=== PATIENT | female | born 1935 | race Caucasian/White ===

== ENCOUNTER 2024-06-24 13:54 | Emergency (ER) | payer OTHER, SELFPAY ==
[2024-06-24 14:04] VITALS: BP 102/67
[2024-06-24 14:18] LABS: % Basophils 0.5 % (0-2); % Eosinophils 1.3 % (0-6); % Immature Granulocytes 0.4 % (0-0.5); % Lymphocytes 20.1 % (20.5-51.1); % Monocytes 7.4 % (1.7-9.3); % Neutrophils 70.3 % (42.2-75.2); Absolute Basophils 0.1 10^3/uL (0-0.2); Absolute Eosinophils 0.1 10^3/uL (0-0.7); Absolute Lymphocytes 2.2 10^3/uL (1.2-3.4); Absolute Monocytes 0.8 10^3/uL (0.1-0.6); Absolute Neutrophils 7.8 10^3/uL (1.4-6.5); Hematocrit 36.2 % (37.0-47.0); Hemoglobin 12.4 g/dL (12.0-16.0); Mean Corp Hgb Conc. 34.3 g/dL (33.0-37.0); Mean Corpuscular Hgb 28.7 pg (27.0-31.0); Mean Corpuscular Volume 83.8 fL (81.0-99.0); Mean Platelet Volume 9.4 fL (7.4-10.4); Nucleated Red Blood Cells % 0 %; Platelet Count 307 10^3/uL (130-400); Red Blood Cell Count 4.32 10^6/uL (4.20-5.40); Red Cell Dist. Width 13.5 % (11.5-14.5)
[2024-06-24 14:47] LABS: ALT (SGPT) 14 U/L (0-35); AST (SGOT) 20 U/L (14-36); Albumin 4.2 g/dl (3.5-5.0); Alkaline Phosphatase 70 U/L (38-126); Blood Urea Nitrogen 15 mg/dl (7-17); Calcium 9.4 mg/dl (8.4-10.2); Carbon Dioxide 24 mmol/L (22-30); Chloride 99 mmol/L (98-107); Glucose 156 mg/dl (70-99); Potassium 3.6 mmol/L (3.5-5.1); Sodium 134 mmol/L (135-145); Total Bilirubin 0.5 mg/dl (0.2-1.3); Total Protein 6.6 g/dl (6.3-8.2); eGFR > 60.00
--- NOTE | 2024-06-24 16:20 | ED.PDOC.TRB ---
ED Provider Triage
-
Patient seen by provider in Triage?: Seen in Triage
A medical screening examination has been initiated by a qualified medical provider. Based on the assessment performed at this time, it has been determined that an emergent medical condition may exist and the patient has been informed that further
medical evaluation and possible additional diagnostic testing may be needed.
This is a medical evaluation conducted in person to initiate diagnostic evaluation and provide initial therapeutics. Please see further documentation by the treating clinician.
GENERAL: Alert , in no apparent distress
EYE: No visual abnormalities
NECK: No visual changes
ENT: No visual abnormalities
CARDIAC:
LUNGS: Breathing normally
ABDOMEN: No reproducible abdominal pain no rash
NEUROLOGICAL: Alert and oriented, no visual focal neuro deficits
SKIN: Warm and dry, skin intact.
MUSCULOSKELETAL: No edema, well perfused. Moving normally
PSYCH: Normal and appropriate interaction.
HPI/RA Plan: 88-year-old female presenting to the emergency department today for concerns of left-sided lateral abdominal and also from her back. Described as a superficial burning sensation. Has been ongoing for at least a few days and to some
degree for 2 weeks. No reproducible pain on physical examination no rash. Labs are additional urinalysis ordered pending further assessment.
[2024-06-24 17:11] LABS: Urine Albumin Negative (Neg - Trace); Urine Bilirubin Negative (Negative); Urine Character Clear (Clear); Urine Color Yellow; Urine Glucose Negative (Negative); Urine Ketone Trace (Negative); Urine Leukocyte 1+ (Negative); Urine Nitrite Negative (Negative); Urine Occult Blood Negative (Negative); Urine Urobilinogen Negative (Neg - 1+)
[2024-06-24 17:42] VITALS: BP 124/79
[2024-06-24 17:56] LABS: Lipase 232 U/L (23-300)
[2024-06-24 18:42] LABS: Urine Bacteria Few (Negative)
[2024-06-24 19:49] VITALS: BMI 23.1
--- NOTE | 2024-06-24 20:49 | ED.GENMED ---
History of Present Illness
<Elizabeth Yip PA-C - Last Filed: 06/25/24 00:42>
General
Chief Complaint: Abdominal Pain
Source: patient
Exam Limitations: none
Time Seen by Provider: 06/24/24 16:18
Nursing documentation reviewed up to this point in time: agreed with
History of Present Illness
History of Present Illness:
Patient is an 88-year-old female with history hypertension, hyperlipidemia, UTIs, diabetes presenting to the emergency department with 3 weeks of left upper flank pain with associated urinary symptoms. Patient states she was seen by her primary
care provider last week for the symptoms where she was started on a course of Macrobid to cover for urinary tract infection. Patient has not noticed much improvement in UTI symptoms and discomfort in her left flank has persisted and somewhat
worsened over the past few days prompting her visit to the emergency department. Patient denies any associated fever, chills, chest pain, shortness of breath, nausea, or vomiting.
Patient denies any pleuritic or exertional component to pain. Patient reports normal appetite.
Patient does note that she has had shingles in the past and was wondering if potentially this could be an operative shingles although she has not noticed a rash.
Review of Systems
<Elizabeth Yip PA-C - Last Filed: 06/25/24 00:42>
Review of Systems
Allergies reviewed?: Yes
All Other Systems: ROS reviewed and negative except as documented in HPI and ROS
Phy Exam
<Elizabeth Yip PA-C - Last Filed: 06/25/24 00:42>
Physical Exam
Physical Exam:
Vitals: Patient's vital signs are stable. Afebrile
General: Patient is very well appearing, no acute distress. Nontoxic-appearing
Skin: Warm and dry, no rashes or lesions
Head: Normocephalic, atraumatic
Eyes: Sclera nonicteric. EOMs intact. No nystagmus.
Throat: Protecting airway
Neck: Normal ROM, no cervical spine tenderness, no meningismus
Cardiac: Regular rate and rhythm, no murmurs.
Pulm: Normal respiratory effort, no wheezes, rales, rhonchi heard on exam.
Abdomen: Abdomen soft. Very mild left upper quadrant abdominal tenderness without rebound tenderness or guarding. Some skin sensitivity to left quadrant abdomen without any overlying erythema or rash. No CVA tenderness bilaterally
Extremities: No evidence of cyanosis or edema. Great distal pulses
Neuro: AAOx3. CN II-XII intact. No focal neurologic deficits.
Psychiatric: Normal affect.
Course
<Elizabeth Yip PA-C - Last Filed: 06/25/24 00:42>
Orders/Labs/Results
Orders:
Orders
06/24/24 14:11
Complete Blood Count/With Diff Urgent
Comprehensive Metabolic Panel Urgent
Lipase Urgent
06/24/24 16:35
Urinalysis Reflex To Culture Urgent
Date Specimen was Collected: 06/24/24
Time Specimen was Collected: 14:06
Urine Microscopic Reflex Cult Urgent
Urine Culture Urgent
BELEM Source: U
Specimen Description:
Date Specimen was Collected: 06/24/24
Time Specimen was Collected: 14:06
06/24/24 21:03
CT Abd/pel Without Iv Or Oral Urgent
Comment:
Reason For Exam: L upper flank pain
06/24/24 21:06
Acetaminophen [Tylenol] 1,000 mg PO NOW STA
Abnormal Lab Results
06/24/24 06/24/24
14:11 16:35
WBC 11.0 H 10^3/uL
(4.8-10.8)
Hct 36.2 L %
(37.0-47.0)
Absolute Neuts (auto) 7.8 H 10^3/uL
(1.4-6.5)
Absolute Monos (auto) 0.8 H 10^3/uL
(0.1-0.6)
Lymphocytes % 20.1 L %
(20.5-51.1)
Sodium 134 L mmol/L
(135-145)
Glucose 156 H mg/dl
(70-99)
Urine Ketones Trace A
(Negative)
Leukocyte Esterase Rfl 1+ A
(Negative)
Urine WBC (Reflex) 11-15 A /HPF
(0-5)
Urine Bacteria (Reflex) Few A
(Negative)
06/24/24 14:11
06/24/24 14:11
Vital Signs
Initial and Last Documented VS:
Initial Vital Signs
Temp Pulse Resp BP Pulse Ox
98.1 F 72 18 102/67 96
06/24/24 14:04 06/24/24 14:04 06/24/24 14:04 06/24/24 14:04 06/24/24 14:04
Last Documented Vital Signs
Temp Pulse Resp BP Pulse Ox
97.9 F 61 18 124/79 98
06/24/24 17:42 06/24/24 17:42 06/24/24 17:42 06/24/24 17:42 06/24/24 17:42
<Josiane Garcia MD - Last Filed: 06/24/24 21:06>
Orders/Labs/Results
Orders:
Orders
06/24/24 14:11
Complete Blood Count/With Diff Urgent
Comprehensive Metabolic Panel Urgent
Lipase Urgent
06/24/24 16:35
Urinalysis Reflex To Culture Urgent
Date Specimen was Collected: 06/24/24
Time Specimen was Collected: 14:06
Urine Microscopic Reflex Cult Urgent
Urine Culture Urgent
BELEM Source: U
Specimen Description:
Date Specimen was Collected: 06/24/24
Time Specimen was Collected: 14:06
06/24/24 21:03
CT Abd/pel Without Iv Or Oral Urgent
Comment:
Reason For Exam: L upper flank pain
06/24/24 21:06
Acetaminophen [Tylenol] 1,000 mg PO NOW STA
Abnormal Lab Results
06/24/24 06/24/24
14:11 16:35
WBC 11.0 H 10^3/uL
(4.8-10.8)
Hct 36.2 L %
(37.0-47.0)
Absolute Neuts (auto) 7.8 H 10^3/uL
(1.4-6.5)
Absolute Monos (auto) 0.8 H 10^3/uL
(0.1-0.6)
Lymphocytes % 20.1 L %
(20.5-51.1)
Sodium 134 L mmol/L
(135-145)
Glucose 156 H mg/dl
(70-99)
Urine Ketones Trace A
(Negative)
Leukocyte Esterase Rfl 1+ A
(Negative)
Urine WBC (Reflex) 11-15 A /HPF
(0-5)
Urine Bacteria (Reflex) Few A
(Negative)
06/24/24 14:11
06/24/24 14:11
Vital Signs
Initial and Last Documented VS:
Initial Vital Signs
Temp Pulse Resp BP Pulse Ox
98.1 F 72 18 102/67 96
06/24/24 14:04 06/24/24 14:04 06/24/24 14:04 06/24/24 14:04 06/24/24 14:04
Last Documented Vital Signs
Temp Pulse Resp BP Pulse Ox
97.9 F 61 18 124/79 98
06/24/24 17:42 06/24/24 17:42 06/24/24 17:42 06/24/24 17:42 06/24/24 17:42
<Elizabeth Yip PA-C - Last Filed: 06/25/24 00:42>
MDM/Problems Addressed
Differential Diagnosis Includes:
Not limited to: UTI, pyelonephritis, kidney stone, diverticulitis, zoster
MDM/Problems Addressed:
88-year-old female presenting with 2 weeks of left upper flank discomfort and associated urinary symptoms. Patient started on weeklong course of Macrobid by PCP which she will be completing tomorrow. No associated fevers, chills, nausea, vomiting.
There is actually no pleuritic component to pain. Vital signs are stable on arrival. Physical exam as above. Patient very well-appearing, in no apparent distress. Abdomen is soft with very mild tenderness in left upper quadrant. No rebound
tenderness or guarding. There is no overlying rash or erythema of left flank. Labs were initiated in triage which show a very mild leukocytosis of 11. No other clinically significant abnormalities. Urinalysis was obtained which does appear to
remain infected despite Macrobid. A urine culture will be sent. Given patient's ongoing symptoms will obtain CT of abdomen/pelvis to ensure no obstructing stone. Patient was given a dose of Tylenol in emergency department. Will reassess.
CT report reviewed. No acute abnormalities. No notable finding to suggest obstructing stone. There were a few minor incidental findings noted including lesions on the liver for which patient was made aware. She will follow-up with primary care
regarding these findings.
Patient did report some improvement following Tylenol. Workup here essentially negative. Given there is absolutely no pleuritic component to pain do not suspect PE or other pulmonary etiology. No evidence of overlying erythema, skin lesions or
vesicles to suggest zoster.
Given that urine does appear to remain infected and initially considered switching patient to Omnicef. Patient does have multiple allergies including to penicillins and sulfas. Did offer trial of Omnicef here with close monitoring although patient
declines and would like to be discharged home. Patient states that she has taken antibiotics in the past prescribed by her PCP but she is unsure what their name is. Patient plans to follow-up with her primary care tomorrow for further evaluation
and selection of antibiotic based on her prior urine cultures/successful antibiotics. Given patient is afebrile, very well-appearing I do feel this is reasonable. Return precautions discussed at length. Stressed importance of close follow-up with
primary care to ensure complete resolution of UTI. Patient aware of possible risks associated with incompletely treated UTI. She is otherwise stable for discharge with PCP follow-up tomorrow. Patient seen with attending physician
Chronic conditions affecting care:
Hypertension, hyperlipidemia, UTI, diabetes
Acute Exacerbation and/or Progression of Chronic Illness:
N/A
<Elizabeth Yip PA-C - Last Filed: 06/25/24 00:42>
*Radiology
Radiology exam reviewed: preliminary read by ED provider and radiology read reviewed
*Pulse Oximetry
Patient hypoxic: no
*EKG
Interpreted by ED Provider?: NA
*Production Pattern Maker Interpretation
Rate: Production Pattern Maker- N/A
*Critical Care Note
Total Time (30-74mins, 75-104mins- exclusive of procedures): Not Applicable
ED Attending Note
<Elizabeth Yip PA-C - Last Filed: 06/25/24 00:42>
-
Portions of this chart may have been created with voice recognition software.� Occasional wrong word or��sound alike� substitutions may have occurred due to the inherent limitations of voice recognition software.
<Josiane Garcia MD - Last Filed: 06/24/24 21:06>
ED Attending Note
Patient seen and examined by attending physician: Yes
I performed the substantive portion of visit, reviewed & personally made and approve the management plan that is documented in note by myself or KAREN.: Yes
ED Attending Note:
Patient appears very well on exam. Lungs are clear. Patient reports sensitivity in her left upper flank area. She reports that the skin even feels sensitive, like a prior history of shingles that she had. On exam, she has minor left upper
quadrant tenderness. Her abdomen is otherwise nontender and soft throughout. When I had patient take a deep breath, she has no reproducible pain in her chest or abdomen.
Discharge Plan
Departure
Patient Disposition: Home (Routine Discharge)
Date of Disposition: 06/24/24
Time of Disposition: 22:15
Patient with high blood pressure during this ER visit?: No
Condition: Good
Covid-19: Not Applicable
Discharge Problem:
Acute UTI, Left flank pain
Instructions: Flank Pain (DC), Urinary Tract Infection, Adult ED
Prescriptions:
No Action
metformin 500 MG tablet
500 mg PO BID
losartan 25 MG tablet
25 mg PO DAILY
atenolol 50 MG tablet
50 mg PO DAILY
atorvastatin 20 mg Tablet
20 mg PO DAILY
docusate sodium [Colace] 100 mg Capsule
100 mg PO BID
fluticasone furoate 50 mcg/actuation Blister With Device
2 inh INHALATION DAILY
acetaminophen [Tylenol Extra Strength] 500 mg Tablet
1,000 mg PO PRN PRN (Reason: pain)
tramadol 50 mg tablet
50 - 100 mg PO Q6H PRN (Reason: pain) Qty: 20 0RF
Referrals:
Cal Romero MD [Family Provider] - Tomorrow
Activity Restrictions/Additional Instructions:
RETURN TO THE EMERGENCY DEPARTMENT WITH FEVERS, CHILLS, WORSENING ABDOMINAL PAIN, INTRACTABLE NAUSEA/VOMITING, CHEST PAIN, SHORTNESS OF BREATH, WORSENING OF CURRENT SYMPTOMS, OR ANY OTHER CONCERNS
-As discussed�it is important that you continue to take your medication as prescribed. Please ensure that you follow-up with your primary care provider tomorrow morning for further evaluation/management.
-Is important to stay well-hydrated.
Monitor your symptoms closely return to the emergency department with any acute worsening/new symptoms
Interventions
Interventions:
*Risk Screen - Suicide Last Done: 06/24/24 14:04
*General Assessment Last Done: 06/24/24 14:04
*Neglect/Abuse Screening Last Done: 06/24/24 14:04
ED- Fall Risk Assessment Last Done: 06/24/24 19:49
*ED COVID-19 Vaccine History Last Done: 06/24/24 14:04
*Nursing Disposition Last Done: 06/24/24 23:14
JZ-Pmfxgs-Njofifbyzi Assessment Last Done: 06/24/24 19:49
Discharge Date and Time
Discharge Date/Time: 06/24/24 23:15
Print Language: BANGLADESHI
[2024-06-24] MEDS: TYLENOL 1000 MG PO (21:14)
== END 2024-06-24 23:15 | disposition home or self-care (01) ==
LOC: EMR 13:54
PROVIDERS: Emergency Medicine; EMERGENCY PHYSICIAN Emergency Medicine; FAMILY PHYSICIAN Family Medicine
DX: N39.0 Urinary tract infection, site not specified (principal); R10.9 Unspecified abdominal pain; I10 Essential (primary) hypertension; E78.00 Pure hypercholesterolemia, unspecified; E11.9 Type 2 diabetes mellitus without complications; Z87.440 Personal history of urinary (tract) infections
CPT/HCPCS: 99284; 74176; 80053; 81003; 81015; 83690; 85025; 87086